=== PATIENT | male | born 1950 ===

== ENCOUNTER 2020-03-31 09:30 | Day surgery (SDC) | payer MEDICARE, BC ==
[~2020-03-31 09:30] MED LIST: Lactated Ringers 1,000 ML IV SCH
[2020-03-31] MEDS ORDERED: Propofol 200 MG/20 ML SDV ONE (09:47)
--- NOTE | 2020-03-31 10:02 | PCM.PREANE ---
Preanesthetic Assessment - Anesthesia/Transfusion/Family Hx Anesthesia History: Prior Anesthesia Reaction Other Type of Anesthesia Reaction Comment: slow to breathe Family History of Anesthesia Reaction: No Transfusion History: No Prior Transfusion(s) Intubation History: Unknown - Review of Systems General: No Symptoms Pulmonary: No Symptoms Cardiovascular: No Symptoms Gastrointestinal: Hematochezia Neurological: No Symptoms Other: Reports: None - Physical Assessment Height: 5 ft 10 in Weight: 92.986 kg ASA Class: 3 Mental Status: Alert & Oriented x3 Airway Class: Mallampati = 2 Dentition: Reports: Normal Dentition, Broken Tooth/Teeth (small chip front upper incisor x1) Thyro-Mental Finger Breadths: 3 Mouth Opening Finger Breadths: 2 ROM/Head Extension: Limited/Partial Lungs: Clear to Auscultation, Normal Respiratory Effort Cardiovascular: Regular Rate, Regular Rhythm - Allergies Allergies/Adverse Reactions: Allergies Allergy/AdvReac Type Severity Reaction Status Date / Time No Known Allergies Allergy Verified 03/28/20 14:34 - Blood Blood Available: No - Anesthesia Plan Pre-Op Medication Ordered: None - Acknowledgements Anesthesia Type Planned: MAC Pt an Appropriate Candidate for the Planned Anesthesia: Yes Alternatives and Risks of Anesthesia Discussed w Pt/Guardian: Yes Pt/Guardian Understands and Agrees with Anesthesia Plan: Yes PreAnesthesia Questionnaire HEENT History: Reports: Other (See Below) Other HEENT History: wears glasses and has bilateral hearing aides Cardiovascular History: Reports: Heart Murmur, High Cholesterol, Hypertension Other Cardiovascular History: hx of Rheumatic fever, had a murmur as a teenager - not usually heard now Gastrointestinal History: Reports: GERD Genitourinary History: Reports: Renal Calculus Other Genitourinary History: passed all stones Musculoskeletal History: Reports: Fracture Other Musculoskeletal History: hx of fx hand Neurological History: Reports: Concussion, Migraines, Other (See Below) Other Neuro History: some transient confusion (early alzheimers) Psychiatric History: Reports: Anxiety - Infectious Disease History Infectious Disease History: Reports: None - Past Surgical History Head Surgeries/Procedures: Reports: None HEENT Surgical History: Reports: Naso-Sinus Surgery, Tonsillectomy Other HEENT Surgeries/Procedures: wears glasses and has bilateral hearing aids GI Surgical History: Reports: Colonoscopy (about 8-9 years ago) Male Surgical History: Reports: Vasectomy Musculoskeletal Surgical History: Reports: Knee Replacement, Shoulder Surgery Other Musculoskeletal Surgeries/Procedures:: left TKA (6 years ago) and left RTCR - SUBSTANCE USE Smoking Status *Q: Never Smoker Recreational Drug Use History: No - HOME MEDS Home Medications: Home Meds Sertraline [Zoloft] 150 mg PO DAILY 09/06/18 [History] amLODIPine [Norvasc] 10 mg PO DAILY 09/06/18 [History] Acetaminophen with Codeine [Tylenol with Codeine #3 Tablet] 1 tab PO ASDIRECTED PRN 03/28/20 [History] Aspirin [Ecotrin EC] 325 mg PO DAILY 03/28/20 [History] Cyclobenzaprine HCl 10 mg PO ASDIRECTED PRN 03/28/20 [History] Fluticasone Propionate [Flonase Allergy Relief] 1 spray NASBOTH DAILY PRN [History] Maxalt 10 mg PO ASDIRECTED PRN 03/28/20 [History] Multivitamin [Daily Multiple Vitamin] 1 tab PO DAILY 03/28/20 [History] Rizastigmine 3 mg PO BID 03/28/20 [History] Rosuvastatin Calcium 20 mg PO BEDTIME 03/28/20 [History] hydroCHLOROthiazide [Hydrochlorothiazide] 25 mg PO QAM 03/28/20 [History] - CURRENT (IN HOUSE) MEDS Current Meds: Current Medications Lactated Ringer's (Ringers, Lactated) 1,000 mls @ 125 mls/hr IV ASDIRECTED VASYL Discontinued Medications Propofol (Diprivan 20 Ml) Confirm Administered Dose 400 mg .ROUTE .STK-MED ONE Stop: 03/31/20 09:48
[2020-03-31] MEDS ORDERED: cefOXitin 100 ML ONE (10:33)
--- NOTE | 2020-03-31 11:05 | PCM.OPNOTE ---
- General Post-Op/Procedure Note Date of Surgery/Procedure: 03/31/20 Operative Procedure(s): Colonoscopy with cold sigmoid colon polypectomy Pre Op Diagnosis: Rectal bleeding. Change in bowel habits. Post-Op Diagnosis: Sigmoid colon polyp Anesthesia Technique: MAC (ASA III) Primary Surgeon: Williams Hardwick Condition: Good Free Text/Narrative:: DICTATION 114547 CPT CODE 99330
[2020-03-31] MEDS ORDERED: Lactated Ringers 1,000 ML IV SCH (11:15)
--- NOTE | 2020-03-31 11:21 | PCM.POSTAN ---
POST ANESTHESIA ASSESSMENT - MENTAL STATUS Mental Status: Alert, Oriented - VITAL SIGNS Vital Signs: Last Vital Signs Temp 36.4 C 03/31/20 11:01 Pulse 57 L 03/31/20 11:16 Resp 13 03/31/20 11:16 BP 122/59 L 03/31/20 11:16 Pulse Ox 97 03/31/20 11:16 - RESPIRATORY Respiratory Status: Respiratory Rate WNL, Airway Patent, O2 Saturation Stable - CARDIOVASCULAR CV Status: Pulse Rate WNL, Blood Pressure Stable - GASTROINTESTINAL GI Status: No Symptoms - PAIN Pain Score: 0 - POST OP HYDRATION Hydration Status: Adequate & Stable - OBSERVATIONS Free Text/Narrative:: No anesthesia problems.
--- NOTE | 2020-03-31 11:58 | PCM48HPAN ---
Post Anesthesia Note - EVALUATION WITHIN 48HRS OF ANESTHETIC Vital Signs in Normal Range: Yes Patient Participated in Evaluation: Yes Respiratory Function Stable: Yes Airway Patent: Yes Cardiovascular Function Stable: Yes Hydration Status Stable: Yes Pain Control Satisfactory: Yes Nausea and Vomiting Control Satisfactory: Yes Mental Status Recovered: Yes Vital Signs: Last Vital Signs Temp 36.4 C 03/31/20 11:01 Pulse 57 L 03/31/20 11:16 Resp 13 03/31/20 11:16 BP 122/59 L 03/31/20 11:16 Pulse Ox 97 03/31/20 11:16 - COMMENTS/OBSERVATIONS Free Text/Narrative:: No anesthesia problems.
[2020-03-31 13:15] VITALS: BP 127/62; PULSE 52
--- NOTE | 2020-04-03 10:32 | OR ---
SURGEON: Williams Hardwick M.D. DATE OF PROCEDURE: 03/31/2020 OPERATION PERFORMED: Colonoscopy with cold sigmoid colon polypectomy. PRIMARY SURGEON: Williams Hardwick MD ANESTHESIA: MAC. ASA CLASSIFICATION: III. PREOPERATIVE DIAGNOSES: 1. Rectal bleeding. 2. Change in bowel habits. POSTOPERATIVE DIAGNOSIS: Small sigmoid polyp. DESCRIPTION OF PROCEDURE: The patient was taken to the endoscopy room and positioned on the endoscopy table in the left lateral decubitus position. Time-out was called for appropriate identification of patient and procedure. Monitored anesthesia care was provided and the colonoscope was inserted into the rectum and advanced without difficulty to the cecum. The cecum was identified by internal landmarks and external pressure. The colonoscope was retroflexed to visualize the ascending colon from below, then straightened and slowly withdrawn. The cecum, ascending colon, hepatic flexure, transverse colon, splenic flexure, and descending colon showed no tumors, polyps, diverticula, or angiodysplastic changes. One small polyp was encountered in the sigmoid colon and removed with cold biopsy forceps. There was no evidence of sigmoid diverticulosis. The colonoscope was withdrawn to the rectum and retroflexed to visualize the anal orifice from above. Again, no tumors or polyps were seen and there were no acute hemorrhoidal changes. The colonoscope was then straightened, the rectum aspirated, and the colonoscope removed. The patient tolerated the procedure well and was taken to recovery room in stable condition. CC: Connie Hines MD [address] [id number] [place] / [place] /[id number]
== END 2020-03-31 12:10 | disposition home or self-care (01) ==
LOC: MW.SDS 09:30
PROVIDERS: ATTEND Surgery
DX: D12.5 Benign neoplasm of sigmoid colon (principal); F41.9 Anxiety disorder, unspecified; F32.9 Major depressive disorder, single episode, unspecified; K21.9 Gastro-esophageal reflux disease without esophagitis; E78.00 Pure hypercholesterolemia, unspecified; I10 Essential (primary) hypertension; G30.0 Alzheimer's disease with early onset; F02.80 Dementia in other diseases classified elsewhere, unspecified severity, without behavioral disturbance, psychotic disturbance, mood disturbance, and anxiety; Z79.82 Long term (current) use of aspirin; Z79.899 Other long term (current) drug therapy; Z87.19 Personal history of other diseases of the digestive system; Z87.442 Personal history of urinary calculi; Z96.659 Presence of unspecified artificial knee joint
CPT/HCPCS: 45380; J0694; J2704; J7120; 00811